=== PATIENT | male | born 1960 | race Caucasian/White ===

== ENCOUNTER → 2023-03-03 | Outpatient (CLI) | payer MEDICARE ==
[~2023-03-03] MED LIST: IBUHYD PO
== END ==
LOC: LAB 10:00
DX: R30.0 Dysuria (principal)
CPT/HCPCS: 87077; 87086; 87186

== ENCOUNTER 2023-04-30 11:42 | Day surgery (SDC) | payer MEDICARE ==
[~2023-04-30] VITALS: Ht 167.6 cm; Wt 78.8 kg
[~2023-04-30 11:42] MED LIST changes: +LANTUS SOL100 UNIT/1; +Lisinopril-Hct1 EAC4 PO; +METF500C PO; +OMEPRAZOLE20 M1 PO; +PIOG15 PO
[2023-04-30 15:17] VITALS: BP 93/58
--- NOTE | 2023-04-30 15:19 | NUR ---
04/30/23 1519 Candis Green IV DC'D CATH INTACT. PT TOLERATED WELL. GAUZE/COBAN IN PLACE
== END 2023-04-30 15:19 | disposition home or self-care (01) ==
LOC: ORSCSDS 11:42
PROVIDERS: Internal Medicine Gastroenterology
PROC: 0DJ08ZZ Inspection of Upper Intestinal Tract, Via Natural or Artificial Opening Endoscopic (ICD-10-PCS; principal; 2023-04-30 13:15)
PROC: 0DBP8ZX Excision of Rectum, Via Natural or Artificial Opening Endoscopic, Diagnostic (ICD-10-PCS; principal; 2023-04-30 13:15)
DX: R10.32 Left lower quadrant pain (principal); R10.13 Epigastric pain; K21.9 Gastro-esophageal reflux disease without esophagitis; K62.1 Rectal polyp; K57.30 Diverticulosis of large intestine without perforation or abscess without bleeding; K64.8 Other hemorrhoids; F17.210 Nicotine dependence, cigarettes, uncomplicated; K76.0 Fatty (change of) liver, not elsewhere classified; I10 Essential (primary) hypertension; E78.5 Hyperlipidemia, unspecified; E11.9 Type 2 diabetes mellitus without complications; Z79.899 Other long term (current) drug therapy; Z79.84 Long term (current) use of oral hypoglycemic drugs
CPT/HCPCS: 82947; 88305; J2704; J7120

== ENCOUNTER → 2024-11-18 | Outpatient (CLI) | payer MEDICARE ==
[2024-11-18 12:09] LABS: BASOPHILS ABSOLUTE AUTO 0.09 K/mm3 (0.00-0.23); BASOPHILS PERCENT AUTO 1 % (0-2); EOSINOPHILS ABSOLUTE AUTO 0.56 K/mm3 (0.00-0.68); EOSINOPHILS PERCENT AUTO 7 % (0-6); Hematocrit 44.8 % (37.0-53.0); Hemoglobin 15.1 g/dL (13.5-17.5); IMMATURE GRAN ABSOLUTE AUTO 0.08 K/mm3 (0.00-0.10); IMMATURE GRAN PERCENT AUTO 1 % (0-1); LYMPHOCYTES ABSOLUTE AUTO 2.42 K/mm3 (0.84-5.20); LYMPHOCYTES PERCENT AUTO 29 % (21-46); MONOCYTES ABSOLUTE AUTO 0.83 K/mm3 (0.16-1.47); MONOCYTES PERCENT AUTO 10 % (4-13); Mean Corpuscular HGB Conc 33.7 g/dL (31.5-36.5); Mean Corpuscular Volume 89 fL (80-100); NEUTROPHILS ABSOLUTE AUTO 4.38 K/mm3 (1.96-9.15); NEUTROPHILS PERCENT AUTO 52 % (41-73); NRBC ABSOLUTE 0.00 K/mm3 (0.00-0.02); NRBC Auto 0.0 /100 WBC (0.0-0.2); Platelet Count 207 K/mm3 (150-400); RDW Coefficient Variation 13.4 % (11.7-14.2); RDW Standard Deviation 43.5 fL (35.1-46.3)
[2024-11-18 12:30] LABS: Alanine Aminotransfer (ALT/SGP 64 U/L (12-78); Albumin, Blood 3.7 g/dL (3.4-5.0); Albumin/Globulin Ratio 1.1 (0.8-1.8); Anion Gap 6 mmol/L (3-11); Aspartate Aminotrans (AST/SGOT 29 U/L (12-37); Bilirubin, Total 0.8 mg/dL (0.1-1.0); Blood Urea Nitrogen 22 mg/dL (8-24); CHOL/HDL RATIO 3.0; CO2, Blood 24 mmol/L (21-32); Calcium, Blood 9.1 mg/dL (8.5-10.1); Chloride, Blood 108 mmol/L (98-108); Cholesterol 166 mg/dL (50-200); Creatinine, Blood 0.83 mg/dL (0.60-1.20); Globulin, Blood 3.5 g/dL (2.2-4.0); Glucose, Blood 136 mg/dL (70-99); HDL Cholesterol 55 mg/dL (>39); LDL/HDL RATIO 1.4; Low Density Lipoprotein Chol 79 mg/dL (0-110); Potassium, Blood 4.2 mmol/L (3.5-5.5); Sodium, Blood 134 mmol/L (136-145); Total Protein, Blood 7.2 g/dL (6.4-8.2); Triglycerides 161 mg/dL (30-160); Very Low Density Lipoprot Chol 32 mg/dL (6-32)
== END ==
LOC: LAB 11:48 → LAB SHORT 11:48
PROVIDERS: Nurse Practitioner Family
DX: E78.5 Hyperlipidemia, unspecified (principal); I10 Essential (primary) hypertension
CPT/HCPCS: 80053; 80061; 85025